=== PATIENT | female | born 1985 | race African-American/Black ===

== ENCOUNTER 2017-01-12 11:05 | Emergency (ER) | payer MEDICAID ==
[2017-01-12 12:29] LABS: BASOPHILS 0.1 % (0.0-2.0); EOSINOPHILS 0.2 % (0-7); HEMATOCRIT 39.1 % (36.0-48.0); IMMATURE GRANULOCYTES 0.5 % (0-5); LYMPHOCYTES 17.9 % (15-50); MCH 28.8 pg (26.0-34.0); MCHC 33.2 g/dL (31.0-37.0); MCV 86.7 fL (80.0-100.0); MEAN PLATELET VOLUME 10.8 fL (7.4-10.4); MONOCYTES 4.4 % (2-11); NEUTROPHILS 76.9 % (40-80); PLATELET COUNT 235 10x3/uL (130-400); RBC 4.51 10x6/uL (4.00-5.40); RDW 13.1 % (11.5-14.5); WBC 13.5 10x3/uL (4.8-10.8)
[2017-01-12 12:40] LABS: ALBUMIN 3.2 g/dL (3.4-5.0); ALKALINE PHOSPHATASE 64 U/L (46-116); ALT (SGPT) 27 U/L (10-68); CALC OSMOLALITY 265 mosm/kg (275-300); CALCIUM 9.1 mg/dL (8.5-10.1); CARBON DIOXIDE 23.6 mmol/L (21.0-32.0); CHLORIDE - SERUM 100 mmol/L (98-107); CREATININE - SERUM 0.5 mg/dL (0.6-1.3); POTASSIUM - SERUM 4.2 mmol/L (3.5-5.1); PROTEIN - SERUM 7.4 g/dL (6.4-8.2); SODIUM 135 mmol/L (136-145); UREA NITROGEN 8 mg/dL (7-18); eGFR NON AFRICAN AMERICAN > 90 mL/min (90-120)
[2017-01-12 12:42] LABS: GLUCOSE 68 mg/dL (74-106)
[2017-01-12 12:49] LABS: APPEARANCE HAZY (CLEAR); BILIRUBIN NEGATIVE (NEGATIVE); COLOR STRAW (YELLOW); GLUCOSE NEGATIVE (NEGATIVE); KETONE NEGATIVE (NEGATIVE); LEUKOCYTE ESTERASE NEGATIVE (NEGATIVE); NITRITE NEGATIVE (NEGATIVE); PROTEIN NEGATIVE (NEGATIVE); UROBILINOGEN NORMAL (NORMAL)
== END 2017-01-12 14:50 | disposition home or self-care (01) ==
LOC: D.ER 11:05
PROVIDERS: Emergency Medicine
DX: R10.2 Pelvic and perineal pain (principal)

== ENCOUNTER → 2017-04-14 10:31 | Outpatient (CLI) | payer MEDICAID | END | disposition home or self-care (01) | LOC: D.LDO 10:31 | DX: O36.8130 Decreased fetal movements, third trimester, not applicable or unspecified (principal); Z3A.30 30 weeks gestation of pregnancy; O24.419 Gestational diabetes mellitus in pregnancy, unspecified control ==

== ENCOUNTER → 2017-04-18 09:14 | Outpatient (CLI) | payer MEDICAID ==
--- NOTE | 2017-04-18 09:53 | NUR ---
Nutrition education for MICHAEL: Pt states she was drinking a lot of juice every day before diagnosis. She is now drinking water and some milk. Pt was also eating a lot of sugary snack foods and has stopped now. Pt cooks most meals at home and does eat a lot of nonstarchy vegetables. Pt has been skipping breakfast. Pt has a glucometer and is testing 4 times a day. Pt states readings are ~80 mg/dl before breakfast and ~124 mg/dl 1 hour after meals. 32 year old female Ht: 5'3" Wt: 164# Pre wt: 130# Pt with family history of DMT2 Reviewed CHO containing foods and the affect CHO have on glucose. Stressed the importance of eating regularly scheduled meals along with portion control. Reviewed sample menus with emphasis on CHO. Advised pt to start eating breakfast every day. Pt with good understanding of information provided. Provided pt with printed diet information and RDN name and phone number. RDN will be available if needed. Thank you for the consult.
== END ==
LOC: D.FANS 04-11 09:00
DX: O24.419 Gestational diabetes mellitus in pregnancy, unspecified control (principal)

== ENCOUNTER → 2017-05-04 10:50 | Outpatient (CLI) | payer MEDICAID | END | disposition home or self-care (01) | LOC: D.LDO 10:50 | DX: O36.8130 Decreased fetal movements, third trimester, not applicable or unspecified (principal); Z3A.33 33 weeks gestation of pregnancy ==

== ENCOUNTER → 2017-05-11 11:21 | Outpatient (CLI) | payer MEDICAID | END | disposition home or self-care (01) | LOC: D.LDO 11:21 | DX: O24.419 Gestational diabetes mellitus in pregnancy, unspecified control (principal); Z3A.34 34 weeks gestation of pregnancy ==

== ENCOUNTER → 2017-05-22 10:52 | Outpatient (CLI) | payer MEDICAID | END | disposition home or self-care (01) | LOC: D.LDO 10:52 | DX: O36.8130 Decreased fetal movements, third trimester, not applicable or unspecified (principal) ==

== ENCOUNTER → 2017-05-25 13:40 | Outpatient (CLI) | payer MEDICAID | END | disposition home or self-care (01) | LOC: D.LDO 13:40 | DX: O36.8130 Decreased fetal movements, third trimester, not applicable or unspecified (principal); Z3A.36 36 weeks gestation of pregnancy ==

== ENCOUNTER → 2017-05-30 12:27 | Outpatient (CLI) | payer MEDICAID | END | disposition home or self-care (01) | LOC: D.LDO 12:27 | DX: O36.8130 Decreased fetal movements, third trimester, not applicable or unspecified (principal); Z3A.37 37 weeks gestation of pregnancy ==

== ENCOUNTER → 2017-06-06 14:18 | Outpatient (CLI) | payer MEDICAID ==
[~2017-06-06 14:18] MED LIST: ACETAMINOPHEN500 M1 PO; PRENATAL COMPLE1 TAB PO
[2017-06-08 05:46] VITALS: BMI 29.4
== END | disposition home or self-care (01) ==
LOC: D.LDO 14:18
DX: O24.913 Unspecified diabetes mellitus in pregnancy, third trimester (principal); Z3A.38 38 weeks gestation of pregnancy

== ENCOUNTER → 2017-06-07 13:53 | Outpatient (CLI) | payer MEDICAID ==
[~2017-06-07 13:53] MED LIST changes: +HYDROCODON-ACE1 EAC7; +HYDROCODON-ACE1 EAC7 PO; +IBUPROFEN600 MG PO
[2017-06-07 14:39] LABS: APPEARANCE CLEAR (CLEAR); BILIRUBIN NEGATIVE (NEGATIVE); COLOR YELLOW (YELLOW); GLUCOSE NEGATIVE (NEGATIVE); KETONE NEGATIVE (NEGATIVE); LEUKOCYTE ESTERASE 1+ (NEGATIVE); NITRITE NEGATIVE (NEGATIVE); PROTEIN NEGATIVE (NEGATIVE); UROBILINOGEN NORMAL (NORMAL)
[2017-06-07 14:40] LABS: BACTERIA FEW /hpf (NONE SEEN); RED CELLS - URINE 0-5 /hpf (0-5)
[2017-06-08 05:46] VITALS: BMI 29.4
== END | disposition home or self-care (01) ==
LOC: D.LDO 13:53
PROVIDERS: Obstetrics & Gynecology
DX: O46.93 Antepartum hemorrhage, unspecified, third trimester (principal); Z3A.38 38 weeks gestation of pregnancy; O24.419 Gestational diabetes mellitus in pregnancy, unspecified control

== ENCOUNTER 2017-06-08 01:36 | Inpatient (IN) | payer MEDICAID ==
[~2017-06-08] VITALS: Ht 160 cm; Wt 75.3 kg
[2017-06-08] MEDS ORDERED: PRENATAL COMPLE1 TAB PO (01:59)
[2017-06-08] MEDS ORDERED: ACETAMINOPHEN500 M1 PO (01:59)
[2017-06-08 02:03] LABS: HEMATOCRIT 40.2 % (36.0-48.0); HEMOGLOBIN 13.7 g/dL (12-16); MCH 29.5 pg (26.0-34.0); MCHC 34.1 g/dL (31.0-37.0); MCV 86.6 fL (80.0-100.0); MEAN PLATELET VOLUME 10.9 fL (7.4-10.4); RBC 4.64 10x6/uL (4.00-5.40); RDW 13.7 % (11.5-14.5); WBC 17.5 10x3/uL (4.8-10.8)
--- NOTE | 2017-06-08 04:31 | NUR ---
PT TRANSFERRED TO ROOM 1221 FOR CONT. PP CARE. PT AMB TO ROOM. PT AND FAMILY ORIENTED TO ROOM AND PT TO BED. NO NEED EXPRESSED AND NO C/O PAIN AT THIS TIME.
--- NOTE | 2017-06-08 05:27 | NUR ---
PAIN REASSESSMENT COMPLETE. PT RATES PAIN 4/10 AND TOLERABLE. FOB TO NBN TO ASSIST WITH BATH. PT DENIES FURTHER NEEDS AT THIS TIME.
[2017-06-08 05:46] VITALS: BP 127/82; Ht 160 cm; Wt 75.3 kg
--- NOTE | 2017-06-08 06:09 | NUR ---
PT AND 3 YOUNG CHILDREN IN ROOM. PT DENIES PAIN OR NEEDS AT THIS TIME.
--- NOTE | 2017-06-08 06:52 | NUR ---
PT RINGS CL. RN TO BEDSIDE. PT REQUESTS & RECEIVES APPLE JUICE IN CUP OF ICE. PT DENIES FURTHER NEEDS. 3 SMALL CHILDREN REMAIN IN ROOM WITH PT.
--- NOTE | 2017-06-08 07:30 | NUR ---
PT WAS RECEIVED THIS AM SITTING UP IN BED, HOLDING BABY. PT OFFERS NO COMPLAINTS AT THIS TIME. SHE STATES THAT SHE IS GOING TO TRY AND BREASTFEED. GEN- AWAKE AND ALERT. LUNGS- CLEAR. HEART- RRR. ABD- SOFT , TENDER, FUNDUS FIRM AT U2. EXT- MINIMAL EDEMA NOTED. SALINE LOCK NOTED R HAND WHICH IS PATENT. BED IS LOW, SIDE RAILS UP X 2 AND CALL LIGHT IN REACH.
--- NOTE | 2017-06-08 08:24 | NUR ---
PT REQUESTED PAIN MED. NORCO AND IBUPROFEN GIVEN PO.
--- NOTE | 2017-06-08 09:30 | NUR ---
PT IS LYING IN BED, VISITING WITH FOB. SHE OFFERS NO COMPLAINTS AT THIS TIME. STILL HAVING MOD LOCIA RUBRA.
--- NOTE | 2017-06-08 11:40 | NUR ---
PT IS SITTING UP IN BED. SHE STATES HER PAIN SEEMS TO BE CREEPING BACK. FOB AT BEDSIDE. STILL LOCIA RUBRA, SHE STATES IT IS LIKE A HEAVY PERIOD.
--- NOTE | 2017-06-08 13:00 | NUR ---
PT ATE LUNCH. SHE OFFER NO COMPLAINTS. FOB AT BEDSIDE. BED IS LOW, SIDE RAILS UP X 2 AND CALL LIGHT IN REACH.
--- NOTE | 2017-06-08 15:30 | NUR ---
PT IS LYING IN BED. SHE REQUESTED PAIN MED. GIVEN.
--- NOTE | 2017-06-08 15:30 | NUR ---
PT REQUESTED PAIN MEDICATION. NORCO 5MG WAS GIVEN PO. C/O ABDOMEN PAIN 05/29. DENIES ANY OTHER NEEDS AT THIS TIME. WILL CONTINUE TO MONITOR
[2017-06-08 17:15] LABS: BASOPHILS 0.1 % (0-2); EOSINOPHILS 0.4 % (0-7); HEMATOCRIT 36.5 % (36.0-48.0); HEMOGLOBIN 12.2 g/dL (12-16); IMMATURE GRANULOCYTES 0.3 % (0-5); LYMPHOCYTES 20.1 % (15-50); MCH 29.3 pg (26.0-34.0); MCHC 33.4 g/dL (31.0-37.0); MCV 87.5 fL (80.0-100.0); MEAN PLATELET VOLUME 11.1 fL (7.4-10.4); MONOCYTES 8.6 % (2-11); NEUTROPHILS 70.5 % (40-80); PLATELET COUNT 193 10x3/uL (130-400); RBC 4.17 10x6/uL (4.00-5.40); RDW 13.9 % (11.5-14.5); WBC 15.2 10x3/uL (4.8-10.8)
[2017-06-08 19:43] VITALS: BP 111/62
--- NOTE | 2017-06-08 19:43 | NUR ---
ASSESSMENT PER FLOW SHEET, VS OBTAINED, SALINE LOCK IN RIGHT HAND INTACT WITH NO REDNESS OR EDEMA, FF, ML, U/1, PT REPORTS LITE BLEEDING WITH NO CLOTS, PT DENIES FLATUS, NO BM AND VOIDING BY SELF WITH NO DIFFICULTY, PT DENIES NEEDS OR PAIN AT THIS TIME, FOB HOLDING BABY, TRASH REMOVED
--- NOTE | 2017-06-08 20:22 | NUR ---
PT HOLDING BABY, DENIES NEEDS AT THIS TIME, FOB AT BEDSIDE
--- NOTE | 2017-06-08 21:21 | NUR ---
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
--- NOTE | 2017-06-08 22:16 | NUR ---
PT HOLDING BABY, RATES ABD CRAMPING AND ANISH PAIN 1/, DENIES NEEDS AT THIS TIME
--- NOTE | 2017-06-09 00:02 | NUR ---
PT FEEDING BABY, DENIES NEEDS OR PAIN AT THIS TIME, FOB AND OTHER DAUGHTER AT BEDSIDE
--- NOTE | 2017-06-09 02:13 | NUR ---
PT AWAKE, FOB CHANGING BABIES DIAPER, REQUESTED AND PROVIDED BOTTLE FOR 3AM FEEDING, PT DENIES NEEDS OR PAIN AT THIS TIME
--- NOTE | 2017-06-09 02:24 | NUR ---
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
--- NOTE | 2017-06-09 04:00 | NUR ---
PT RESTING WITH EYES CLOSED, RESP QUIET, NO DISTRESS NOTED, LEFT UNDISTURBED AT THIS TIME, FOB AND DAUGHTER ASLEEP AT BEDSIDE
--- NOTE | 2017-06-09 04:00 | NUR ---
PT HOLDING BABY, DENIES NEEDS OR PAIN AT THIS TIME, FOB ASLEEP IN RECLINER, BROTHER AWAKE AT BEDSIDE
--- NOTE | 2017-06-09 05:41 | NUR ---
PT [facility]B TO [facility], GAIT STEADY, PT BACK TO ROOM, REPORTS NO PAIN AT THIS TIME
--- NOTE | 2017-06-09 07:00 | NUR ---
SHIFT REPORT TO LESTER DOMINGUEZ RN
[2017-06-09 07:25] LABS: RAPID PLASMA REAGIN Non Reactive (Non Reactive)
--- NOTE | 2017-06-09 07:45 | NUR ---
PT WAS RECIVED THIS AMSITTING UP IN BED. SHE OFFERS NO COMPLAINTS. FOB AT BEDSIDE AND PTS DAUGHTER. GEN- AWAKE AND ALERT. LUNGS- CLEAR. HEART- RRR. ABD- SOFT WITH TENDERNESS NOTED. BS+. SMALL LOCHIA RUBRA NOTED. EXT- NO EDEMA. SALINE LOCK INTACT R HAND. BED IS LOW, SIDE RAILS UP X 2 AND CALL LIGHT IN REACH.
[2017-06-09 07:46] VITALS: BP 113/72
--- NOTE | 2017-06-09 10:08 | NUR ---
PT IS BEING ASSISTED WITH .
--- NOTE | 2017-06-09 10:53 | NUR ---
Betsy Louis 06/09/17 LE@ 9:45 S: Patient states she hasn't breastfed baby since she delivery, did her little boy who is now 6. States she would like to try and . O: Patient sitting up in bed, father of baby at bedside holding , young daughter in chair in room. Congratulated on delivery and explained takes time and patience in the beginning. Both mother and are learning. Explained breastmilk composition, your body will increase in the amount of colostrum it will make for daily, as long as baby is placed to the breast for every feeding. Stimulation is necessary with helping your body to produce for infant, supply and demand, what is taking out; your body will make more of. Explained feeding cues, when infant shows signs of feeding cues allow to be placed to the breast for every feeding, time frame on how long infant latches can vary per baby, and this is normal. Asked when ate last, FOB states around 6 or 7, he should eat again soon. Had FOB offer formula for several minutes, then we can place to the breast. Offered to help with latching to the breast, explained how to hold for every feeding, turn tummy to tummy nose, opposite of nipple, gently support head and allow to self-latch. Observed patient attempting to feeding, patient has flat nipples, provided nipple shield and showed how to properly apply. Had patient apply nipple shield, verified patient is aware how to properly apply. Placed to mother, baby was placed to the breast in laid back position, would suck and stop for several minutes. Nursery nurse came in room to get baby. I will come back in room, when returns. A: Mother has flat nipples, attempting for first time. P: Encouraged to latch for every feeding. Mary Fiarchild
--- NOTE | 2017-06-09 11:37 | NUR ---
Betsy Louis 06/09/17 LE@ 10:40 O: Patient sitting up in bed holding , alert and awake, FOB at bedside, daughter in chair in room. Baby had 25 ml of formula before returning to the nursery earlier, in between trying to latch . Its possible infant may not want to nurse but we can try. Offered to help with latching , had patient place baby skin to skin to help promote nursing. immediately went to sleep. Encouraged patient to try and wake for feeding by stimulating. Re-explained how to hold for feeding, open his mouth placed nipple in, and then stop. Infant feel asleep, not waking easily. Encouraged to keep baby skin to skin when possible, explained benefits of skin to skin. For next feeding when shows signs of feeding cues offer infant the breast first, if baby gets impatient at the breast, try to sooth and place back at the breast. has to work to remove milk from the breast; it doesn't come out as fast like the bottle. When we feed infant in the beginning phases of early hungry cues, baby is more like to attempt feedings at the breast. Baby is calm and not fussy; this will help with latching at the breast. Please ask for help as needed when latching infant. Patient states she will try latching baby for next feeding, she will work on it, and give a bottle if she can't get baby to latch. Asked if any questions or concerns, all declined, will follow up. A: Infant not interested in feeding at this time P: Continue to support latching for feedings. Mary Fairchild, CLC
--- NOTE | 2017-06-09 12:00 | NUR ---
PT IS RESTING IN BED, HOLDING BABY. SHE OFFERS NO COMPLAINTS. BED IS LOW, SIDE RAILS UP X 2 AND CALL LIGHT IN REACH.
--- NOTE | 2017-06-09 13:30 | NUR ---
PT C/O PAIN. RATES A 04/29. NORCO5/326 GIVEN PO.
[2017-06-09] MEDS ORDERED: IBUPROFEN600 MG PO (14:31)
[2017-06-09] MEDS ORDERED: HYDROCODON-ACE1 EAC7 (14:32)
[2017-06-09] MEDS ORDERED: HYDROCODON-ACE1 EAC7 PO (14:32)
== END 2017-06-09 15:00 | disposition home or self-care (01) | DRG 775 ==
LOC: D.WS 01:36 → D.LD 01:36 → D.WS 04:33
PROVIDERS: ADMIT Obstetrics & Gynecology
PROC: 10E0XZZ Delivery of Products of Conception, External Approach (ICD-10-PCS; principal; 2017-06-08)
DX: O62.3 Precipitate labor (principal); O99.824 Streptococcus B carrier state complicating childbirth; Z3A.38 38 weeks gestation of pregnancy; Z37.0 Single live birth